=== PATIENT | male | born 1930 | race Caucasian/White ===

== ENCOUNTER 2022-06-14 06:35 | Emergency (ER) | payer OTHER, MEDICARE ==
[~2022-06-14] VITALS: Ht 182.9 cm; Wt 94.8 kg
[2022-06-14 06:43] VITALS: BP_SYST 148
[2022-06-14] MEDS ORDERED: NITROGLYCERIN 1 INCH (GM) OINT. TP ONE (06:43)
[2022-06-14] MEDS ORDERED: MORPHINE 4 MG INJ. 4 MG/ML VIAL IVP ONE (06:43)
[2022-06-14 07:29] LABS: BASOPHILS # (AUTO) 0.1 K/uL (0.0-0.2); BASOPHILS % (AUTO) 0.6 % (0.0-2.0); EOSINOPHILS # (AUTO) 0.2 K/uL (0.0-0.4); EOSINOPHILS % (AUTO) 1.7 % (0.0-4.0); HEMATOCRIT 42.4 % (36-54); HEMOGLOBIN 14.3 g/dL (14.0-18.0); LYMPHOCYTES # (AUTO) 1.1 K/uL (1.0-5.5); LYMPHOCYTES % (AUTO) 8.9 % (20.5-51.5); MEAN CORPUSCULAR HEMOGLOBIN 31 pg (27-31); MEAN CORPUSCULAR HGB CONC 34 % (32-36); MEAN CORPUSCULAR VOLUME 92 fL (79.0-98.0); MONOCYTES # (AUTO) 1.4 K/uL (0.0-1.0); MONOCYTES % (AUTO) 11.5 % (1.7-9.3); NEUTROPHILS # (AUTO) 9.3 K/uL (1.8-7.7); NEUTROPHILS % (AUTO) 77.3 % (40.0-70.0); PLATELET COUNT (AUTO) 250 K/uL (130-430); RED BLOOD CELL COUNT(AUTO) 4.59 MIL/uL (4.2-6.2); RED CELL DISTRIBUTION WIDTH 13.9 % (9.0-15.0); WHITE BLOOD COUNT (AUTO) 12.1 K/uL (4.8-10.8)
[2022-06-14] MEDS ORDERED: ASPIRIN 325 MG TABLET PO ONE (07:30)
[2022-06-14 07:50] LABS: ANION GAP 3 (5-15); CALCIUM 9.1 mg/dL (8.4-11.0); CHLORIDE 100 mmol/L (98-107); CREATININE 0.88 mg/dL (0.55-1.30); GLUCOSE 135 mg/dL (70-99); UREA NITROGEN, BLOOD 15 mg/dL (8-21)
[2022-06-14 07:59] LABS: ALANINE AMINOTRANSFERASE 22 U/L (12-78); ASPARTATE AMINOTRANSFERASE 23 U/L (10-37); TOTAL BILIRUBIN 0.6 mg/dL (0.0-1.0)
[2022-06-14 20:02] VITALS: BP_SYST 135
== END 2022-06-14 12:00 | disposition left against medical advice (07) ==
LOC: SED 06:35
DX: I20.9 Angina pectoris, unspecified (principal); R07.9 Chest pain, unspecified; R06.02 Shortness of breath; J44.9 Chronic obstructive pulmonary disease, unspecified; I10 Essential (primary) hypertension; Z88.1 Allergy status to other antibiotic agents; Z79.899 Other long term (current) drug therapy
CPT/HCPCS: 99285; 96374; 71045; 80053; 83880; 85025; 84484; 36415; 93005; J2270